=== PATIENT | female | born 1990 | race Caucasian/White ===

== ENCOUNTER 2022-01-14 21:35 | Emergency (ER) | payer OTHER, SELFPAY ==
--- NOTE | ~2022-01-14 | XR_ITS ---
EXAMINATION: XR CHEST CLINICAL INFORMATION: Chest pain. COMPARISON: 03/12/2013 chest radiographs. TECHNIQUE: Frontal view of the chest was obtained. FINDINGS: No significant abnormality is noted involving the heart, lungs, mediastinum, bony thorax or soft tissues. XR/XR chest 1V IMPRESSION: No acute cardiopulmonary process.
--- NOTE | ~2022-01-14 | CT_ITS ---
EXAMINATION: CT ABDOMEN AND PELVIS WITH CONTRAST CLINICAL INFORMATION: Diffuse abdominal pain with nausea and vomiting COMPARISON: Pelvic radiograph 09/13/2015, OB ultrasound 10/23/2016 TECHNIQUE: Multidetector volumetric images were obtained from the superior aspect of the liver through the pubic symphysis following administration 85 mL of Omnipaque 350 intravenous contrast. Sagittal and coronal reformatted images were obtained on the technologist's workstation. Oral contrast: No This CT examination was performed using dose optimization techniques as appropriate, variously including the following: *Automated exposure control *Adjustment of mA and/or kV according to patient size (this includes techniques or standardized protocols for targeted exams where dose is matched to indication/reason for exam; i.e. extremities or head) *Use of iterative reconstruction technique DLP: 198 mGy-cm FINDINGS: LUNG BASES: The visualized lung bases are unremarkable. LIVER, GALLBLADDER, AND BILIARY TREE: The liver is normal in size, shape, and attenuation. No focal hepatic lesion or biliary ductal dilatation is present. The gallbladder is contracted but otherwise unremarkable with no evidence of radiopaque gallstones, gallbladder wall thickening, or obvious pericholecystic inflammatory changes. PANCREAS: Unremarkable. SPLEEN: Unremarkable. ADRENAL GLANDS: Unremarkable. KIDNEYS AND URETERS: The kidneys are normal in size, shape, and attenuation. No hydronephrosis, hydroureter, or calculi seen. No perinephric stranding. BLADDER: Unremarkable. GASTROINTESTINAL TRACT: There is some loops of small bowel sitting directly on top of the uterus with some mild tethering/inflammatory changes seen in the mesentery. Diverticular changes are present in the colon most prominent in the sigmoid. Some minimal thickening and possible inflammatory change is present. No gross diverticulitis is seen. The small and large bowel are otherwise unremarkable. The appendix is is not identified but there is no evidence of appendicitis. ABDOMINAL WALL: No significant hernia is appreciated. LYMPH NODES: No retroperitoneal pathology. VASCULAR: Unremarkable. PELVIC VISCERA: An anteverted uterus is present. There is a mass present in the right adnexa that contains fat and may represent an ovarian dermoid which was visualized on an OB ultrasound performed on 10/23/2016. An abnormal adnexal mass or fluid is not seen. OSSEOUS STRUCTURES: Compression fractures/dysplastic changes are present in nearly all vertebral bodies. Disc spaces are preserved. Dysplastic changes are present in the both hips as well with deformity of the femoral heads and acetabulum. Appearances are unchanged when compared to 09/13/2015 CT/CT abdomen pelvis w IV con IMPRESSION: There is some questionable area of some minimal enteritis seen in the pelvis as described above. Some equivocal minimal inflammatory change around a loop of sigmoid could represent some minimal diverticulitis. There is no evidence of bowel obstruction. Dysplastic skeletal changes are incidentally noted and unchanged from prior Fleischner guidelines were followed.
--- NOTE | 2022-01-14 21:41 | ECG_ITS ---
Test Reason : CHEST PAIN Blood Pressure : / mmHG Vent. Rate : 096 BPM Atrial Rate : 096 BPM P-R Int : 140 ms QRS Dur : 076 ms QT Int : 324 ms P-R-T Axes : 033 007 022 degrees QTc Int : 409 ms Normal sinus rhythm with sinus arrhythmia Normal ECG No previous ECGs available Referred By: Generic ED Physician Electronically Signed By:REZA LEDBETTER
[2022-01-14 21:42] VITALS: BP 114/63; PULSE 112; RESP 18; TEMP 37; O2SAT 96; BMI 24.1
[2022-01-14 22:23] LABS: Basophils Percent Auto 0.1 % (0-2); Hematocrit 44.3 % (37.0-47.0); Hemoglobin 13.9 g/dl (12.0-16.0); Imm Gran Abs Auto 0.05 X10*3/uL (0.00-0.03); Imm Gran Pct Auto 0.4 % (0.0-0.4); Lymphocytes Absolute Auto 0.9 X10*3/uL (1.2-4.9); Lymphocytes Percent Auto 7.7 % (20-40); MANUAL DIFF FLAG NO; Mean Corpuscular HGB Conc 31.4 g/dl (31.0-35.0); Mean Corpuscular Hemoglobin 23.6 pg (27.0-33.0); Mean Corpuscular Volume 75.1 fL (80.0-98.0); Mean Platelet Volume 9.9 fL (9.4-12.3); Monocytes Absolute Auto 0.6 X10*3/uL (0.1-1.2); Monocytes Percent Auto 4.8 % (2-11); Neutrophils Absolute Auto 10.4 x10*3/uL (2.0-8.3); Platelet Count 249 X10*3/uL (160-400); Red Cell Distribution Width 15.1 % (11.0-16.0); White Blood Count 11.9 X10*3/uL (4.8-10.8)
[2022-01-14 22:41] LABS: Anion Gap 20 (12-20); Blood Urea Nitrogen 26 mg/dL (9-16); Calcium 10.1 mg/dL (8.4-10.2); Carbon Dioxide 19 mmol/L (22-29); Chloride 105 mmol/L (96-108); Creatinine Clr Calc Pharmacy 54.4; Estimated Glomerular Filt Rate > 60; Glucose Random 106 mg/dL (60-115); Potassium 4.7 mmol/L (3.3-5.1); Sodium 139 mmol/L (135-145)
[2022-01-14 22:45] LABS: Troponin-I High Sensitivity < 3.5 ng/L (<3.5-17.0)
--- NOTE | 2022-01-14 22:50 | ED_ITS ---
HPI - Chest Pain General Chief Complaint: Chest Pain Stated Complaint: chest pain, vomiting Time Seen by Provider: 01/14/22 22:50 Source: patient Mode of arrival: ambulatory Limitations: no limitations Related Data Allergies Allergy/AdvReac Type Severity Reaction Status Date / Time ibuprofen [From MOTRIN] Allergy Unknown RASH Verified 01/14/22 21:45 [facility] Past Medical History Medical History (Updated 01/14/22 @ 22:48 by Mindy Rogers) No known health problems Social History Social History Alcohol intake: never Patient Tobacco Use Status: Never used Tobacco Use of substances other than those prescribed or required for medical reasons: No Patient : No Physical Exam Vital Signs: Vital Signs: Last Vital Signs Temp 98.6 F 01/14/22 21:42 Pulse 112 H 01/14/22 21:42 Resp 18 01/14/22 21:42 BP 114/63 01/14/22 21:42 Pulse Ox 96 01/14/22 21:42 O2 Del Method 01/14/22 21:42 BMI result Body Mass Index 24.1 MDM - Chest Pain Lab Data Result diagrams: 01/14/22 22:15 01/14/22 22:15 Labs: Lab Results 01/14/22 01/14/22 01/14/22 Range/Units 22:15 22:15 22:15 WBC 11.9 H (4.8-10.8) X10*3/uL RBC 5.90 H (4.20-5.50) X10*6/uL Hgb 13.9 (12.0-16.0) g/dl Hct 44.3 (37.0-47.0) % MCV 75.1 L (80.0-98.0) fL MCH 23.6 L (27.0-33.0) pg MCHC 31.4 (31.0-35.0) g/dl RDW 15.1 (11.0-16.0) % Plt Count 249 (160-400) X10*3/uL MPV 9.9 (9.4-12.3) fL Immature Gran % (Auto) 0.4 (0.0-0.4) % Neut % (Auto) 87.0 H (45-73) % Lymph % (Auto) 7.7 L (20-40) % [place] % (Auto) 4.8 (2-11) % Eos % (Auto) 0.0 (0-4) % Baso % (Auto) 0.1 (0-2) % Lymph # (Auto) 0.9 L (1.2-4.9) X10*3/uL [place] # (Auto) 0.6 (0.1-1.2) X10*3/uL Eos # (Auto) 0.0 (0.0-0.4) X10*3/uL Baso # (Auto) 0.0 (0.0-0.2) X10*3/uL Abs Immat Gran (auto) 0.05 H (0.00-0.03) X10*3/uL Absolute Neuts (auto) 10.4 H (2.0-8.3) x10*3/uL Absolute Nucleated RBC 0.000 (0.0-0.012) X10*3/uL Nucleated RBC % (auto) 0.0 (0.0-0.2) /100WBC Sodium 139 (135-145) mmol/L Potassium 4.7 (3.3-5.1) mmol/L Chloride 105 (96-108) mmol/L Carbon Dioxide 19 L (22-29) mmol/L Anion Gap 20 (12-20) BUN 26 H (9-16) mg/dL Creatinine 0.79 (0.5-1.4) mg/dL Estim Creat Clear Calc 54.4 Estimated GFR > 60 Random Glucose 106 (60-115) mg/dL Calcium 10.1 (8.4-10.2) mg/dL Troponin I High Sens < 3.5 (<3.5-17.0) ng/L
--- NOTE | 2022-01-14 22:57 | ED.CHESTPAIN ---
HPI - Chest Pain General Chief Complaint: Chest Pain Stated Complaint: chest pain, vomiting Time Seen by Provider: 01/14/22 22:50 Source: patient Mode of arrival: ambulatory Limitations: no limitations History of Present Illness HPI narrative: 31-year-old past medical history significant for spondyloepiphyseal dysplasia, asthma presenting to the emergency department with multiple complaints including severe diffuse lower abdominal pain, nausea, vomiting , chest pressure, and lightheadedness since this morning. Patient tells me she has not been able to keep anything down today, she reports that she has been vomiting continuously throughout the day and feels very weak and fatigued. Patient also notes that she has been peeing a lot less than usual today and is experiencing a dry mouth. Patient reports that she is having substernal boring chest pressure, nonradiating, denies shortness of breath. She tells me she feels like she is slightly lightheaded and maybe has a small headache coming on, feels like her typical no vision changes, truama or dizziness. To note patient has no history of DVT or PE. Not anticoagulated. No personal or family history of cardiac disease. Denies fevers, chills, vision changes, changes in bowel habits/ diarrhea, trauma,dizziness, weakness, MD complaint: chest pain Related Data Previous Rx's Medication Instructions Recorded levofloxacin 750 mg tablet 750 mg PO DAILY 7 days #7 tabs 01/15/22 metronidazole 500 mg tablet 500 mg PO BID 7 days #14 tabs 01/15/22 ondansetron 4 mg disintegrating 4 mg PO Q6H PRN nausea and 01/15/22 tablet vomiting #14 tabs Allergies Allergy/AdvReac Type Severity Reaction Status Date / Time ibuprofen [From MOTRIN] Allergy Unknown RASH Verified 01/14/22 21:45 Review of Systems Review of Systems: Constitutional : No Weight loss, No Fever, No Chills, + Fatigue, + Malaise ENT/Mouth : No sore throat, No Rhinorrhea Eyes: No Eye Pain, No Swelling, No Redness Cardiovascular : + Chest Pain, No SOB, No Dyspnea on Exertion, No Orthopnea, No Edema, No Palpitations Respiratory : No Cough, No Sputum, No Wheezing Gastrointestinal : + Nausea, + Vomiting, No Diarrhea, No Constipation, + abdominal Pain, No Hematochezia, No Melena Genitourinary : No Dysuria, No Urinary Frequency, No Hematuria, Musculoskeletal : No joint pain, No Myalgias, No Joint Swelling Skin : No Skin Lesions, No rash Neuro : No Weakness, No Numbness, No Dizziness, No Headache Psych : No Anxiety/Panic, No Depression All other systems reviewed and are negative Yes all other systems are reviewed and are negative [facility] Past Medical History Attestation statement: The following information was validated with the patient. Source: old records reviewed and nursing notes reviewed Medical History (Updated 01/15/22 @ 02:00 by OMAR Mendez) No known health problems Social History Social History Alcohol intake: never Patient Tobacco Use Status: Never used Tobacco Use of substances other than those prescribed or required for medical reasons: No Advance Directives: No Patient : No Physical Exam Vital Signs: Vital Signs: Last Vital Signs Temp 98.6 F 01/14/22 21:42 Pulse 93 01/15/22 00:00 Resp 18 01/15/22 01:15 BP 102/81 01/15/22 00:00 Pulse Ox 100 01/15/22 00:00 O2 Del Method 01/15/22 00:00 BMI result Body Mass Index 24.1 VSS Appearance: Alert.? Oriented X3.? No acute distress.?Non toxic appearing Head: Normocephalic, atraumatic, no step-offs or deformities Eyes: Pupils equal, round and reactive to light.? Neck: Normal inspection.? Neck supple.? CVS: Normal heart rate and rhythm.? Pulses normal.?+ anterior chest wall pain on palpation. Respiratory: No respiratory distress.? Breath sounds normal.? Abdomen: Soft and + lower abd pain on palpation, Normal BS .?Negative murphys sign. No signs of peritonitits. Skin: Skin warm and dry.? Normal skin color.? Normal skin turgor.? Extremities: No lower extremity edema.? No calf ttp. 5/5 strength to bilateral upper and lower extremities Back: No midline tenderness, no C-spine tenderness, full range of motion, no CVA tenderness bilaterally Neuro: Oriented X 3.? No motor deficit.? No sensory deficit. CN 2-12 intact Course Reevaluation(s) Reevaluation #1: CBC with slight leukocytosis and slightly elevated red blood cell count, likely secondary to dehydration, reactive from nausea and vomiting, chemistry with no acute findings, BUN slightly elevated again secondary to dehydration. Urine clean. Troponin negative, EKG nonischemic unlikley acs. Dimer negative. Chest x-ray no acute findings. ABD/ pelvis CT pending Time: 22:50 Reevaluation #2: CT of the abdomen pelvis with questionable area of enteritis seen in the pelvis, inflammatory changes noted around the loop of sigmoid which could represent diverticulitis, patient tells me that at this time her chest pain has subsided, however patient is still experiencing abdominal pain she is diffusely tender to the lower abdomen on exam, therefore patient was given Levaquin and metronidazole for diverticulitis. To note patient had a normal QTC on EKG, patient will be discharged home with Zofran for nausea and vomiting. Patient tolerating fluids in the emergency department and clear liquids. Again history and physical examination not consistent with ACS, PE. Likely diverticulitis and/or enteritis. At this time patient will be discharged home with prompt PCP follow-up, advised return with any new or worsening symptoms. Educated on worrisome signs and symptoms and when to return. Comfortable discharge home. At time of discharge patient tells me she is feeling much better and is excited to go. Time: 01:58 MDM - Chest Pain MDM Narrative Medical decision making narrative: 1126 31-year-old female presents chest discomfort, right lower abdominal pain, nausea, vomiting, malaise, fatigue x1 day. Physical examination significant for pain with palpation to right lower quadrant. Stable vital signs. No signs of peritonitis on exam. Will obtain a cardiac workup to rule out ACS although unlikely. Also obtain a D-dimer to rule out PE. Will obtain urine to rule out UTI and . Will also r/o intra abdominal etiologies. Plan at this time is basic labs, imaging, urine, D-dimer, EKG, troponin. Medical Records Data Attestation: I reviewed the patient's medical records. Lab Data Attestation: I reviewed the patient's lab results. Result diagrams: 01/14/22 22:15 01/14/22 22:15 Labs: Lab Results 01/14/22 01/14/22 01/14/22 Range/Units 22:15 22:15 22:15 WBC 11.9 H (4.8-10.8) X10*3/uL RBC 5.90 H (4.20-5.50) X10*6/uL Hgb 13.9 (12.0-16.0) g/dl Hct 44.3 (37.0-47.0) % MCV 75.1 L (80.0-98.0) fL MCH 23.6 L (27.0-33.0) pg MCHC 31.4 (31.0-35.0) g/dl RDW 15.1 (11.0-16.0) % Plt Count 249 (160-400) X10*3/uL MPV 9.9 (9.4-12.3) fL Immature Gran % (Auto) 0.4 (0.0-0.4) % Neut % (Auto) 87.0 H (45-73) % Lymph % (Auto) 7.7 L (20-40) % [place] % (Auto) 4.8 (2-11) % Eos % (Auto) 0.0 (0-4) % Baso % (Auto) 0.1 (0-2) % Lymph # (Auto) 0.9 L (1.2-4.9) X10*3/uL [place] # (Auto) 0.6 (0.1-1.2) X10*3/uL Eos # (Auto) 0.0 (0.0-0.4) X10*3/uL Baso # (Auto) 0.0 (0.0-0.2) X10*3/uL Abs Immat Gran (auto) 0.05 H (0.00-0.03) X10*3/uL Absolute Neuts (auto) 10.4 H (2.0-8.3) x10*3/uL Absolute Nucleated RBC 0.000 (0.0-0.012) X10*3/uL Nucleated RBC % (auto) 0.0 (0.0-0.2) /100WBC D-Dimer High Sensitivty NG/ML Sodium 139 (135-145) mmol/L Potassium 4.7 (3.3-5.1) mmol/L Chloride 105 (96-108) mmol/L Carbon Dioxide 19 L (22-29) mmol/L Anion Gap 20 (12-20) BUN 26 H (9-16) mg/dL Creatinine 0.79 (0.5-1.4) mg/dL Estim Creat Clear Calc 54.4 Estimated GFR > 60 Random Glucose 106 (60-115) mg/dL Calcium 10.1 (8.4-10.2) mg/dL Total Bilirubin 0.8 (0.0-1.0) mg/dL Direct Bilirubin 0.3 (0.0-0.5) mg/dL AST 19 (5-31) U/L ALT 17 (0-31) U/L Alkaline Phosphatase 119 H (39-117) U/L Troponin I High Sens < 3.5 (<3.5-17.0) ng/L Total Protein 8.6 H (6.5-8.0) g/dL Albumin 5.1 H (3.5-5.0) g/dL Urine Color Urine Appearance Urine pH (5.0-9.0) Ur Specific [place] (1.005-1.025) Urine Protein (Neg-Trace) mg/dL Urine Glucose (UA) (Negative) mg/dL Urine Ketones (Negative) mg/dL Urine Blood (Negative) Urine Nitrite (Negative) Ur Leukocyte Esterase (Negative) Urine RBC (0-2) /HPF Urine WBC (0-5) /HPF Ur Squamous Epith Cells (0-2) /HPF Urine Bacteria (None Seen) Hyaline Casts (0-2) /LPF Urine Test (NEGATIVE) 01/14/22 01/14/22 01/14/22 Range/Units 23:31 23:31 23:52 WBC (4.8-10.8) X10*3/uL RBC (4.20-5.50) X10*6/uL Hgb (12.0-16.0) g/dl Hct (37.0-47.0) % MCV (80.0-98.0) fL MCH (27.0-33.0) pg MCHC (31.0-35.0) g/dl RDW (11.0-16.0) % Plt Count (160-400) X10*3/uL MPV (9.4-12.3) fL Immature Gran % (Auto) (0.0-0.4) % Neut % (Auto) (45-73) % Lymph % (Auto) (20-40) % [place] % (Auto) (2-11) % Eos % (Auto) (0-4) % Baso % (Auto) (0-2) % Lymph # (Auto) (1.2-4.9) X10*3/uL [place] # (Auto) (0.1-1.2) X10*3/uL Eos # (Auto) (0.0-0.4) X10*3/uL Baso # (Auto) (0.0-0.2) X10*3/uL Abs Immat Gran (auto) (0.00-0.03) X10*3/uL Absolute Neuts (auto) (2.0-8.3) x10*3/uL Absolute Nucleated RBC (0.0-0.012) X10*3/uL Nucleated RBC % (auto) (0.0-0.2) /100WBC D-Dimer High Sensitivty 176 NG/ML Sodium (135-145) mmol/L Potassium (3.3-5.1) mmol/L Chloride (96-108) mmol/L Carbon Dioxide (22-29) mmol/L Anion Gap (12-20) BUN (9-16) mg/dL Creatinine (0.5-1.4) mg/dL Estim Creat Clear Calc Estimated GFR Random Glucose (60-115) mg/dL Calcium (8.4-10.2) mg/dL Total Bilirubin (0.0-1.0) mg/dL Direct Bilirubin (0.0-0.5) mg/dL AST (5-31) U/L ALT (0-31) U/L Alkaline Phosphatase (39-117) U/L Troponin I High Sens (<3.5-17.0) ng/L Total Protein (6.5-8.0) g/dL Albumin (3.5-5.0) g/dL Urine Color Dark Yellow Urine Appearance Turbid Urine pH 5.5 (5.0-9.0) Ur Specific [place] >= 1.030 H (1.005-1.025) Urine Protein 30 (1+) H (Neg-Trace) mg/dL Urine Glucose (UA) Negative (Negative) mg/dL Urine Ketones 15 (Negative) mg/dL Urine Blood Negative (Negative) Urine Nitrite Negative (Negative) Ur Leukocyte Esterase Negative (Negative) Urine RBC 3-5 H (0-2) /HPF Urine WBC 0-5 (0-5) /HPF Ur Squamous Epith Cells 11-20 (0-2) /HPF Urine Bacteria 2+ (None Seen) Hyaline Casts 0-2 (0-2) /LPF Urine Test NEGATIVE (NEGATIVE) ECG Data ECG #1: Attestation: I personally reviewed and interpreted this ECG as follows: ECG interpretation date: 01/15/22 ECG interpretation time: 02:01 Prior ECG tracings: not available for review Interpretation: Ventricular rate of 96, [place] normal, QRS normal, QT/QTC normal. EKG with normal sinus rhythm sinus arrhythmia. No ST elevations or inversions concerning for ischemia. No previous to compare with. Critical Care Time Critical Care Time Critical Care Time: No Discharge Plan Discharge Clinical Impression: Diverticulitis, Nausea & vomiting, Chest pain not due to acute coronary syndrome, Fatigue, Enteritis Patient Disposition: Home, Self-Care Instructions: Chest Pain (ED), Diverticulitis (ED), Acute Nausea and Vomiting (ED), Diverticulitis Diet (ED), Fatigue (ED), Enteritis (ED) Additional Instructions: Take your medications as prescribed. If you were prescribed antibiotics today, it is important that you take your medication to their entirety, do not skip any doses, do not finish them early. Follow-up with your primary care provider this week. Follow-up with cardiology of systems persist Return to the emergency department with new or worsening symptoms. Such as fevers, chills, chest pain, shortness of breath, nausea, vomiting, dizziness, headache, vision changes, lethargy, blood in stool, blood in vomit In case of emergency call 911 Please follow a clear liquid diet for about a week and then transition slowly to bland diet. Zofran is a medication as been sent to your pharmacy, this is for nausea and vomiting, please only take this as prescribed, please do not take more than the prescribed dose as it can lead to cardiac arrhythmias or irregular heart rate/rhythm To note, Levaquin is an antibiotic that belongs to the fluoroquinolone family, these types of antibiotics can cause tendon rupture, if for some reaso you experience pain anywhere, please be evaluated by medical professional immediately. I do recommend that you do not exercise for 2-3 weeks until you are medically cleared and off of antibiotics. CT/CT abdomen pelvis w IV con IMPRESSION: There is some questionable area of some minimal enteritis seen in the pelvis as described above. Some equivocal minimal inflammatory change around a loop of sigmoid could represent some minimal diverticulitis. There is no evidence of bowel obstruction. Dysplastic skeletal changes are incidentally noted and unchanged from prior Fleischner guidelines were followed. Prescriptions: New metronidazole 500 mg tablet 500 mg PO BID 7 Days Qty: 14 0RF levofloxacin 750 mg tablet 750 mg PO DAILY 7 Days Qty: 7 0RF ondansetron 4 mg tablet,disintegrating 4 mg PO Q6H PRN (Reason: nausea and vomiting) Qty: 14 0RF Referrals: Physician,Unknown J [Primary Care Provider] - 2 days Ruy Jean-Baptiste MD [Physician] - 1 week Stand Alone Forms: Work/School Release
[2022-01-14 23:33] LABS: UPreg QC Valid YES; Urine Pregnancy NEGATIVE (NEGATIVE)
[2022-01-14 23:36] LABS: Appearance Urine Turbid; Color Urine Dark Yellow; Glucose Urine UA Negative (Negative); Leukocyte Esterase Urine Negative (Negative); Nitrite Urine Negative (Negative); PH 5.5 (5.0-9.0); Specific Gravity - Urine >= 1.030 (1.005-1.025); Urine Blood Negative (Negative); Urine Ketones 15 mg/dL (Negative); Urine Protein 30 (1+) mg/dL (Neg-Trace)
[2022-01-14] MEDS: ondansetron HCL 4 MG/2 ML VIAL IVPUSH (23:36)
[2022-01-14 23:38] LABS: Bacteria Urine 2+ (None Seen); Hyaline Casts Urine 0-2 /LPF (0-2); WBC Urine 0-5 /HPF (0-5)
[2022-01-14 23:44] LABS: Alanine Aminotransferase 17 U/L (0-31); Albumin Level 5.1 g/dL (3.5-5.0); Alkaline Phosphatase 119 U/L (39-117); Aspartate Amino Transferase 19 U/L (5-31); Bilirubin Direct 0.3 mg/dL (0.0-0.5); Bilirubin Total 0.8 mg/dL (0.0-1.0); Total Protein 8.6 g/dL (6.5-8.0)
[2022-01-14] MEDS: 0.9 % Sodium Chloride 1,000 ML 999 ML IV (23:47)
--- NOTE | 2022-01-14 23:49 | PC.NURSE ---
pt a&ox3, vss, medicated per provider order, 20G IV placed right forearm, NaCl running.
[2022-01-15] VITALS: BP 102/81; PULSE 93; RESP 18; O2SAT 100
[2022-01-15 00:03] LABS: D Dimer High Sensitivity 176 NG/ML
[2022-01-15] MEDS: iohexoL 350 MG/ML 100 ML INFUS..BTL 85 ML IV (00:41)
[2022-01-15 01:15] VITALS: RESP 18
[2022-01-15] MEDS: Morphine Sulfate 2 MG/ML CARTRIDGE IVPUSH (01:15)
[2022-01-15] MEDS: levoFLOXacin 750 MG TABLET PO (01:18)
--- NOTE | 2022-01-15 01:19 | PC.NURSE ---
pt a&ox3, medicated per provider order, pt reporting 7/10 headache.
[2022-01-15] MEDS: metroNIDAZOLE 500 MG TABLET PO (02:15)
== END 2022-01-15 02:22 | disposition home or self-care (01) ==
PROVIDERS: Physician Assistant; Emergency Provider Internal Medicine
DX: R07.89 Other chest pain (principal); K57.32 Diverticulitis of large intestine without perforation or abscess without bleeding; K52.9 Noninfective gastroenteritis and colitis, unspecified; R11.2 Nausea with vomiting, unspecified; R53.83 Other fatigue
CPT/HCPCS: 36415; 71045; 74177; 80048; 80076; 81001; 81025; 84484; 85025; 85379; 93005; 96361; 96374; 96375; 99284; J2270; J2405; Q9967

== ENCOUNTER 2023-07-02 22:20 | Emergency (ER) | payer OTHER, SELFPAY ==
--- NOTE | ~2023-07-02 | XR_ITS ---
EXAMINATION: XR CHEST CLINICAL INFORMATION: Cough COMPARISON: Chest x-ray January 14, 2022 TECHNIQUE: Frontal view of the chest was obtained. 2308 hours FINDINGS: Lung volume low. This causes crowding the bronchovascular markings. No overt pulmonary edema. No focal consolidation. There is no pleural effusion or pneumothorax. Multilevel degenerative spondylosis spine. XR/XR chest 1V IMPRESSION: No acute abnormality of chest.
--- NOTE | 2023-07-02 22:27 | ECG_ITS ---
Test Reason : cp Blood Pressure : / mmHG Vent. Rate : 115 BPM Atrial Rate : 115 BPM P-R Int : 150 ms QRS Dur : 084 ms QT Int : 332 ms P-R-T Axes : 027 014 -07 degrees QTc Int : 459 ms Sinus tachycardia Otherwise normal ECG When compared with ECG of 14-JAN-2022 22:04, No significant change was found Referred By: Generic ED Physician Electronically Signed By:DILLAN PADILLA MD
--- NOTE | 2023-07-02 22:34 | MHC.EDTECH ---
Patient brought into triage area,EKG taken per order and signed by provider,labs obtained and sent to lab.
[2023-07-02 22:39] LABS: Hematocrit 36.4 % (37.0-47.0); Hemoglobin 12.1 g/dl (12.0-16.0); Mean Corpuscular HGB Conc 33.2 g/dl (31.0-35.0); Mean Corpuscular Hemoglobin 27.1 pg (27.0-33.0); Mean Corpuscular Volume 81.4 fL (80.0-98.0); Mean Platelet Volume 10.4 fL (9.4-12.3); Platelet Count 158 X10*3/uL (160-400); Red Blood Count 4.47 X10*6/uL (4.20-5.50); Red Cell Distribution Width 12.8 % (11.0-16.0); White Blood Count 6.4 X10*3/uL (4.8-10.8)
[2023-07-02 22:53] VITALS: BP 102/62; PULSE 112; RESP 18; TEMP 37.7; O2SAT 95; BMI 23.3
[2023-07-02 22:55] LABS: Alanine Aminotransferase 13 U/L (0-31); Albumin Level 4.2 g/dL (3.5-5.0); Alkaline Phosphatase 74 U/L (39-117); Anion Gap 15 (12-20); Aspartate Amino Transferase 21 U/L (5-31); Bilirubin Total 0.4 mg/dL (0.0-1.0); Blood Urea Nitrogen 12 mg/dL (9-16); Calcium 9.1 mg/dL (8.4-10.2); Carbon Dioxide 21 mmol/L (22-29); Chloride 109 mmol/L (96-108); Estimated Glomerular Filt Rate > 60; Glucose Random 105 mg/dL (60-115); Potassium 3.4 mmol/L (3.3-5.1); Sodium 142 mmol/L (135-145); Total Protein 6.9 g/dL (6.5-8.0)
[2023-07-02 23:03] LABS: Troponin-I High Sensitivity < 2.7 ng/L (<3.5-17.0)
[2023-07-02 23:27] LABS: COVID-19 Test Negative (Negative); IDNOW Serial# 08D9AD1C; IDNOW Serial# 152EDE1D; Influenza A Positive (Negative)
[2023-07-02 23:31] LABS: Influenza B2 Negative (Negative)
[2023-07-03 01:25] VITALS: BP 111/73; PULSE 112; RESP 18; TEMP 38.3; O2SAT 96
[2023-07-03] MEDS: Acetaminophen 325 MG TABLET 650 MG PO (03:14)
[2023-07-03 04:26] VITALS: BP 103/55; PULSE 127; RESP 16; O2SAT 94
--- NOTE | 2023-07-03 05:23 | ED_ITS ---
HPI - URI/Sore Throat General Chief Complaint: Upper Respiratory Symptoms Stated Complaint: chest pain, sick for a couple days Time Seen by Provider: 07/03/23 05:21 Source: patient Mode of arrival: ambulatory Limitations: no limitations History of Present Illness HPI Narrative: 32-year-old female who presents emergency department for evaluation of nonproductive cough, chest pain, back pain, fever and chills x4 days. Patient states she has severe fatigue. She has lost her appetite but has been able to drink fluids. She states that her symptoms are getting worse and she developed a fever of 101.7 degrees F at home therefore she came to the emergency department for evaluation. She states she has been taking Tylenol which does help with her symptoms and has helped relieve her fever. She states that her cough is nonproductive. She points to her left chest when asked to localize the pain and states that the pain is worse with coughing and with breathing. Related Data Previous Rx's Medication Instructions Recorded levofloxacin 750 mg tablet 750 mg PO DAILY 7 days #7 tabs 01/15/22 metronidazole 500 mg tablet 500 mg PO BID 7 days #14 tabs 01/15/22 ondansetron 4 mg disintegrating 4 mg PO Q6H PRN nausea and 01/15/22 tablet vomiting #14 tabs acetaminophen 500 mg tablet 1,000 mg (2 x 500 mg) PO Q6H PRN 07/03/23 (Tylenol Extra Strength) fever or pain #20 tabs ondansetron 4 mg disintegrating 4 mg PO Q6-8H PRN nausea and 07/03/23 tablet vomiting #14 tabs Allergies Allergy/AdvReac Type Severity Reaction Status Date / Time ibuprofen [From MOTRIN] Allergy Unknown RASH Verified 07/02/23 22:53 Review of Systems 2 Review of Systems: Yes all other systems are reviewed and are negative [facility] Past Medical History [facility] Narrative: Past medical history: None. Social history: She does smoke cigarettes. She denies alcohol and drug use. Medical History No known health problems Social History Social History Alcohol intake: never Patient Tobacco Use Status: Never used Tobacco Advance Directives: No Advance Directives Information Provided: Yes Physical Exam 2 Vital Signs: Vital Signs: Last Vital Signs Temp 101 F H 07/03/23 01:25 Pulse 127 H 07/03/23 04:26 Resp 16 07/03/23 04:26 BP 103/55 L 07/03/23 04:26 Pulse Ox 94 07/03/23 04:26 O2 Del Method Room Air 07/03/23 04:26 BMI result Body Mass Index 23.3 Vital signs were normal Exam: General: Awake, alert in no distress, very short stature Head: Normocephalic, atraumatic EENT: PERRL, Lids normal, sclera normal, conjunctiva normal, nose normal , ears normal, throat without erythema or exudates Neck: Supple, no adenopathy Lung: breath sounds symmetric, no wheezing, rales or rhonchi Chest: symmetric movement, nontender Heart: regular rate and rhythm, normal S1, S2 no murmurs or rubs Abdomen: soft, non-tender, nondistended, normal bowel sounds Back: no vertebral tenderness, no CVAT Extremities: no deformities, moves all extremities symmetrically Neuro: Awake, alert, oriented, normal speech, cranial nerves intact, moves all extremities symmetrically Psych: Pleasant, cooperative Medications Administered Discontinued Medications Generic Name Dose Route Start Last Admin Trade Name Freq PRN Reason Stop Dose Admin Acetaminophen 650 mg 07/03/23 03:00 07/03/23 03:14 Acetaminophen 325 Mg Tablet PO 07/03/23 03:01 650 mg ONCE ONE Administration Medical Decision Making Medical Decision Making [facility] Narrative: 32-year-old female who presents emergency department for evaluation of fever, chills, nonproductive cough x4 days, chest pain and nausea with no vomiting or diarrhea. Patient has been taking Tylenol with relief of her fever and pain. Vital signs revealed an elevated pulse of 112 otherwise was unremarkable. Exam was unremarkable. Differential diagnosis: Includes was not limited to viral syndrome, influenza, COVID-19, pneumonia, myocardial infarction, myocardial ischemia, electrolyte abnormalities, anemia Following evaluation was ordered: CBC, CMP, troponin, COVID-19, influenza, chest x-ray 06:08 My interpretation of the patient's laboratory evaluation is as follows: CBC was normal. CMP was normal. Troponin was below detectable limits. COVID was negative. Influenza was positive. Patient's chest x-ray revealed no acute disease Patient's presentation is consistent with acute influenza A . The patient is outside of the treatment window for Tamiflu and I did discuss this with her. She was advised to continue taking Tylenol and this was prescribed for her. She was prescribed Zofran 4 mg ODT She was advised to stay on a CARITO diet She was given printed and verbal instructions and discharged home. Admission/Observation Consideration of admission/observation: Escalation of care including admission/observation considered Lab Data MDM Lab Attestation statement: I reviewed the patient's lab results. 07/02/23 22:33 07/02/23 22:33 Labs: Lab Results 07/02/23 07/02/23 Range/Units 22:33 23:08 WBC 6.4 (4.8-10.8) X10*3/uL RBC 4.47 D (4.20-5.50) X10*6/uL Hgb 12.1 (12.0-16.0) g/dl Hct 36.4 L (37.0-47.0) % MCV 81.4 (80.0-98.0) fL MCH 27.1 (27.0-33.0) pg MCHC 33.2 (31.0-35.0) g/dl RDW 12.8 (11.0-16.0) % Plt Count 158 L D (160-400) X10*3/uL MPV 10.4 (9.4-12.3) fL Absolute Nucleated RBC 0.000 (0.0-0.012) X10*3/uL Nucleated RBC % (auto) 0.0 (0.0-0.2) /100WBC Sodium 142 (135-145) mmol/L Potassium 3.4 (3.3-5.1) mmol/L Chloride 109 H (96-108) mmol/L Carbon Dioxide 21 L (22-29) mmol/L Anion Gap 15 (12-20) BUN 12 (9-16) mg/dL Creatinine 0.64 (0.5-1.4) mg/dL Estim Creat Clear Calc TNP Estimated GFR > 60 Random Glucose 105 (60-115) mg/dL Calcium 9.1 D (8.4-10.2) mg/dL Total Bilirubin 0.4 (0.0-1.0) mg/dL AST 21 (5-31) U/L ALT 13 (0-31) U/L Alkaline Phosphatase 74 (39-117) U/L Troponin I High Sens < 2.7 (<3.5-17.0) ng/L Total Protein 6.9 (6.5-8.0) g/dL Albumin 4.2 (3.5-5.0) g/dL COVID-19 (MATTHEW) Negative (Negative) COVID-19 Clin Com See Note Influenza Type A (ARCADIO) Positive A (Negative) Influenza Type B (ARCADIO) Negative (Negative) Influenza A & B Note See Note Independent Interpretation I performed an independent interpretation of an: Plain X-Ray Interpretation: One-view chest x-ray revealed no acute disease, she does have scoliosis Radiology Impression Discussion of test interpretation with radiology: I have reviewed the radiologist's reading. Radiologist Impression: XR chest 1V IMPRESSION: No acute abnormality of chest. Dictated By: Sascha Davis MD Prescription Management I considered prescription management with: Pain Medication Discharge Plan Discharge Clinical Impression: Influenza A Patient Disposition: Home, Self-Care Instructions: Influenza (ED) Additional Instructions: Your laboratory evaluation was unremarkable pain Your chest x-ray revealed no signs of pneumonia Your COVID-19 test was negative Your influenza test was positive for influenza A. Take Tylenol (acetaminophen) 500 mg pills, 2 pills every 6 hours as needed for pain or fever. Take Zofran ODT 4 mg pills, 1 pill dissolved in your mouth every 8 hours as needed for nausea and vomiting. Follow-up with your doctor in 2 days. Please return to the emergency department if your symptoms get worse or if you develop any symptoms that are concerning to you. For the next 24 hours, stay on a CARITO diet (bananas, rice, applesauce, tea and toast). Prescriptions: New acetaminophen [Tylenol Extra Strength] 500 mg tablet 1,000 mg PO Q6H PRN (Reason: fever or pain) Qty: 20 0RF ondansetron 4 mg tablet,disintegrating 4 mg PO Q6-8H PRN (Reason: nausea and vomiting) Qty: 14 0RF No Action metronidazole 500 mg tablet 500 mg PO BID 7 Days Qty: 14 0RF levofloxacin 750 mg tablet 750 mg PO DAILY 7 Days Qty: 7 0RF ondansetron 4 mg tablet,disintegrating 4 mg PO Q6H PRN (Reason: nausea and vomiting) Qty: 14 0RF
[2023-07-03 06:14] VITALS: BP 105/64; PULSE 111; RESP 16; TEMP 37.7; O2SAT 94
--- NOTE | 2023-07-03 06:16 | PC.NURSE ---
pt ambulatory at discharge dr cao made aware of temp HR 112. no new orders pt okay for discharge. pt calm and cooperative. pt provided with discharge packet. pt verbalized understanding of discharge plan
== END 2023-07-03 06:17 | disposition home or self-care (01) ==
PROVIDERS: Emergency Provider Emergency Medicine Emergency Medical Services
DX: J10.1 Influenza due to other identified influenza virus with other respiratory manifestations (principal); R05.9 Cough, unspecified; R07.9 Chest pain, unspecified; R50.9 Fever, unspecified; R11.0 Nausea
CPT/HCPCS: 36415; 71045; 80053; 84484; 85027; 87502; 87635; 93005; 99284; 99285

== ENCOUNTER → 2023-07-02 22:27 | Outpatient (BNV) | payer OTHER, SELFPAY | PROVIDERS: Emergency Provider Emergency Medicine Emergency Medical Services; Visit Provider Internal Medicine Cardiovascular Disease | DX: R00.0 Tachycardia, unspecified (principal) | CPT/HCPCS: 93010 ==

== ENCOUNTER 2023-09-12 20:42 | Emergency (ER) | payer OTHER, SELFPAY ==
--- NOTE | ~2023-09-12 | XR_ITS ---
EXAMINATION: XR CHEST CLINICAL INFORMATION: Cough COMPARISON: 07/02/2023 TECHNIQUE: Frontal view of the chest was obtained. 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 Heart size normal. No evidence of CHF. Some slight increased patchy density seen at the right lung base. Severe degenerative changes are noted in both shoulders. XR/XR chest 1V IMPRESSION: Slight increased patchy density right lung base. This could represent atelectasis or early infiltrate.
[2023-09-12 20:46] VITALS: BP 108/70; PULSE 95; RESP 18; TEMP 37.1; O2SAT 96; BMI 22.7
[2023-09-12 21:14] LABS: Hemoglobin 13.7 g/dl (12.0-16.0); Imm Gran Abs Auto 0.01 X10*3/uL (0.00-0.03); Imm Gran Pct Auto 0.3 % (0.0-0.4); MANUAL DIFF FLAG SCAN; PLT CLUMP 1; Red Cell Distribution Width 13.2 % (11.0-16.0); SCAN SMEAR FLAG 1
[2023-09-12 21:16] LABS: Basophils Percent Auto 0.3 % (0-2); Eosinophils Percent Auto 0.3 % (0-4); Hematocrit 41.5 % (37.0-47.0); Lymphocytes Percent Auto 61.5 % (20-40); Mean Corpuscular Hemoglobin 27.1 pg (27.0-33.0); Mean Platelet Volume 11.3 fL (9.4-12.3); Monocytes Absolute Auto 0.4 X10*3/uL (0.1-1.2); Neutrophils Absolute Auto 0.8 x10*3/uL (2.0-8.3); Neutrophils Percent Auto 25.6 % (45-73); Red Blood Count 5.06 X10*6/uL (4.20-5.50)
[2023-09-12 21:17] LABS: White Blood Count 3.2 X10*3/uL (4.8-10.8)
[2023-09-12 21:18] LABS: Platelet Count 116 X10*3/uL (160-400)
[2023-09-12 21:22] LABS: Alanine Aminotransferase 153 U/L (0-31); Albumin Level 3.9 g/dL (3.5-5.0); Alkaline Phosphatase 67 U/L (39-117); Anion Gap 16 (12-20); Aspartate Amino Transferase 190 U/L (5-31); Bilirubin Total 0.3 mg/dL (0.0-1.0); Blood Urea Nitrogen 11 mg/dL (9-16); COVID-19 Test Negative (Negative); Carbon Dioxide 24 mmol/L (22-29); Chloride 104 mmol/L (96-108); Creatinine Clr Calc Pharmacy 67.7; Estimated Glomerular Filt Rate > 60; Glucose Random 98 mg/dL (60-115); IDNOW Serial# 152EDE1D; Potassium 3.4 mmol/L (3.3-5.1); Sodium 141 mmol/L (135-145); Total Protein 6.8 g/dL (6.5-8.0)
[2023-09-12 21:23] LABS: IDNOW Serial# 08D9AD1C
[2023-09-12 21:24] LABS: Influenza A Negative (Negative); Influenza B2 Positive (Negative)
[2023-09-12 21:50] LABS: SLIDE REVIEW VERIFIED
--- NOTE | 2023-09-12 21:57 | ED_ITS ---
HPI - General Adult General Chief complaint: General Medical Stated complaint: flu like symptoms/weak/wheezing Time Seen by Provider: 09/12/23 21:36 Source: patient Mode of arrival: ambulatory Limitations: no limitations History of Present Illness HPI narrative: 32-year-old female with past medical history of spondylosis nausea dysplasia, and asthma presents to the ED for coughing, fever, chills, and bodyaches. Patient states son also has similar symptoms. Related Data Previous Rx's ?Medication ?Instructions ?Recorded levofloxacin 750 mg tablet 750 mg PO DAILY 7 days #7 tabs 01/15/22 metronidazole 500 mg tablet 500 mg PO BID 7 days #14 tabs 01/15/22 ondansetron 4 mg disintegrating 4 mg PO Q6H PRN nausea and 01/15/22 tablet vomiting #14 tabs acetaminophen 500 mg tablet 1,000 mg (2 x 500 mg) PO Q6H PRN 07/03/23 (Tylenol Extra Strength) fever or pain #20 tabs ondansetron 4 mg disintegrating 4 mg PO Q6-8H PRN nausea and 07/03/23 tablet vomiting #14 tabs amoxicillin 875 mg-potassium 1 tab PO Q12H 5 days #10 tabs 09/12/23 clavulanate 125 mg tablet doxycycline hyclate 100 mg capsule 100 mg PO BID 7 days #14 caps 09/12/23 oseltamivir 75 mg capsule (Tamiflu) 75 mg PO Q12H 5 days #10 caps 09/12/23 Allergies Allergy/AdvReac Type Severity Reaction Status Date / Time ibuprofen [From MOTRIN] Allergy Unknown RASH Verified 09/12/23 20:51 Review of Systems 2 Review of Systems: URI symptoms Yes all other systems are reviewed and are negative PMFSH Past Medical History Medical History No known health problems Social History Social History Alcohol intake: never Patient Tobacco Use Status: Never used Tobacco Advance Directives: No Advance Directives Information Provided: No Do you have a plan to hurt others: No Plan Physical Exam ED Vital Signs: Vital Signs - 24 hr 09/12/23 20:46 09/12/23 23:11 Temperature 98.7 F 98.7 F Pulse Rate 95 95 Respiratory Rate 18 18 Blood Pressure 108/70 108/70 Pulse Oximetry 96 96 Oxygen Delivery Method Room Air Room Air BMI result Body Mass Index 22.7 Const General: cooperative, healthy appearing, comfortable, no acute distress, well developed, alert, awake and Physically active Orientation/consciousness: oriented to person, oriented to place, oriented to time and patient oriented x3 HENOR Head: Yes normal to inspection, Yes No palpable skull fracture present, Yes normocephalic, Yes atraumatic and No abrasion Throat: Yes posterior oropharynx normal, Yes tonsils normal and Yes uvula midline Eyes General: appearance normal, both eyes and all related structures Neck Neck: Yes normal visual inspection, Yes full ROM, Yes no lymphadenopathy, Yes no meningeal signs, Yes trachea midline, Yes supple, No anterior neck swelling and No tender Chest Chest palpation & inspection: normal inspection of the chest and normal palpation of entire chest wall Resp Effort & Inspection: normal respiratory effort and able to speak in complete sentences Auscultation: clear to auscultation bilaterally Cardio Jugular venous distension: no JVD Heart sounds: S1 normal heart sound present and S2 normal heart sound present GI Inspection: Yes normal to inspection Palpation (GI): Soft to palpation, not firm, nontender, no guarding and not rigid General: No CVA tenderness and Yes no CVA tenderness Back/Spine/Pelvis Back: no CVA tenderness, No CVA tenderness and No back tenderness Skin General skin exam: no rashes or lesions noted, elasticity normal and turgor normal Neuro General: oriented to person, oriented to place, oriented to time, patient oriented x3, gait normal, tone normal, moves all extremities, Normal light touch and pain sensation, no meningeal signs, no focal motor deficits, CN's II-XI intact bilaterally and normal sensation to monofilament Extrem General: Yes normal to inspection, Yes full ROM and Yes capillary refill normal Psych Appearance: grossly normal, well kempt and not disheveled Medical Decision Making Medical Decision Making MDM Narrative: 32-year-old female history of asthma presents to ED for URI symptoms for 1 week. Patient not in distress. Patient is positive for influenza. Not in a window for Tamiflu. Waiting for chest x-ray results. 10:46pm: Patient's x-ray shows pneumonia. Will treat with antibiotics and due to pneumonia x-ray was still give [place] flu as recommended by up-to-date. Differential Diagnosis Differential Diagnoses: The differential diagnosis associated with the presentation includes (COVID, influenza, RSV, pneumonia, ) Admission/Observation Consideration of admission/observation: Escalation of care including admission/observation considered Lab Data [facility] Lab Attestation statement: I reviewed the patient's lab results. 09/12/23 21:02 09/12/23 21:02 Labs: Lab Results 09/12/23 Range/Units 21:02 WBC 3.2 L (4.8-10.8) X10*3/uL RBC 5.06 (4.20-5.50) X10*6/uL Hgb 13.7 (12.0-16.0) g/dl Hct 41.5 (37.0-47.0) % MCV 82.0 (80.0-98.0) fL MCH 27.1 (27.0-33.0) pg MCHC 33.0 (31.0-35.0) g/dl RDW 13.2 (11.0-16.0) % Plt Count 116 L D (160-400) X10*3/uL MPV 11.3 (9.4-12.3) fL Immature Gran % (Auto) 0.3 (0.0-0.4) % Neut % (Auto) 25.6 L (45-73) % Lymph % (Auto) 61.5 H (20-40) % [place] % (Auto) 12.0 H (2-11) % Eos % (Auto) 0.3 (0-4) % Baso % (Auto) 0.3 (0-2) % Lymph # (Auto) 2.0 (1.2-4.9) X10*3/uL [place] # (Auto) 0.4 (0.1-1.2) X10*3/uL Eos # (Auto) 0.0 (0.0-0.4) X10*3/uL Baso # (Auto) 0.0 (0.0-0.2) X10*3/uL Abs Immat Gran (auto) 0.01 (0.00-0.03) X10*3/uL Absolute Neuts (auto) 0.8 L (2.0-8.3) x10*3/uL Absolute Nucleated RBC 0.000 (0.0-0.012) X10*3/uL Nucleated RBC % (auto) 0.0 (0.0-0.2) /100WBC Smear Tech's Comments VERIFIED Sodium 141 (135-145) mmol/L Potassium 3.4 (3.3-5.1) mmol/L Chloride 104 (96-108) mmol/L Carbon Dioxide 24 (22-29) mmol/L Anion Gap 16 (12-20) BUN 11 (9-16) mg/dL Creatinine 0.61 (0.5-1.4) mg/dL Estim Creat Clear Calc 67.7 Estimated GFR > 60 Random Glucose 98 (60-115) mg/dL Calcium 9.0 (8.4-10.2) mg/dL Total Bilirubin 0.3 (0.0-1.0) mg/dL AST 190 H (5-31) U/L ALT 153 H (0-31) U/L Alkaline Phosphatase 67 (39-117) U/L Total Protein 6.8 (6.5-8.0) g/dL Albumin 3.9 (3.5-5.0) g/dL COVID-19 (MATTHEW) Negative (Negative) COVID-19 Clin Com See Note Influenza Type A (ARCADIO) Negative (Negative) Influenza Type B (ARCADIO) Positive A (Negative) Influenza A & B Note See Note Independent Interpretation I performed an independent interpretation of an: Plain X-Ray Radiology Impression Discussion of test interpretation with radiology: I have reviewed the radiologist's reading. Independent Historian Clinical information obtained from an independent historian. History obtained from or confirmed by: Other (Patient) External Record Review External record reviewed: Other (Prior visit) Prescription Management I considered prescription management with: Antibiotic Discharge Plan Discharge Clinical Impression: Influenza, Pneumonia Patient Disposition: Home, Self-Care Instructions: Influenza (ED), Community Acquired Pneumonia (ED) Additional Instructions: Your x-ray shows pneumonia which can be a complication of influenza. Due to this reading he will be discharged with antibiotics and Tamiflu. Recommend follow-up with primary care provider. Return to the ED immediately for any chest pain, shortness of breath, weakness, dizziness, or any other concerning symptoms Prescriptions: New doxycycline hyclate 100 mg capsule 100 mg PO BID 7 Days Qty: 14 0RF amoxicillin-pot clavulanate 875-125 mg tablet 1 tab PO Q12H 5 Days Qty: 10 0RF oseltamivir [Tamiflu] 75 mg capsule 75 mg PO Q12H 5 Days Qty: 10 0RF No Action metronidazole 500 mg tablet 500 mg PO BID 7 Days Qty: 14 0RF levofloxacin 750 mg tablet 750 mg PO DAILY 7 Days Qty: 7 0RF ondansetron 4 mg tablet,disintegrating 4 mg PO Q6H PRN (Reason: nausea and vomiting) Qty: 14 0RF acetaminophen [Tylenol Extra Strength] 500 mg tablet 1,000 mg PO Q6H PRN (Reason: fever or pain) Qty: 20 0RF ondansetron 4 mg tablet,disintegrating 4 mg PO Q6-8H PRN (Reason: nausea and vomiting) Qty: 14 0RF Stand Alone Forms: Work/School Release Interventions: ED Discharge Assessment Last Done: 09/12/23 23:11 Discharge Date/Time: 09/12/23 23:11 Print Language: Zambian
[2023-09-12 23:11] VITALS: BP 108/70; PULSE 95; RESP 18; TEMP 37.1; O2SAT 96
== END 2023-09-12 23:11 | disposition home or self-care (01) ==
PROVIDERS: Emergency Provider Emergency Medicine Emergency Medical Services
DX: J11.00 Influenza due to unidentified influenza virus with unspecified type of pneumonia (principal); Z11.52 Encounter for screening for COVID-19
CPT/HCPCS: 71045; 80053; 85025; 87502; 87635; 99282; 99283